=== PATIENT | female | born 1955 | race Caucasian/White ===

== ENCOUNTER → 2021-06-29 15:56 | Outpatient (CLI) | payer OTHER, SELFPAY ==
[2021-07-05 22:07] LABS: QNTFERON TB Mitogen Value > 10.00 IU/mL (.); QNTFERON TB Nil Value 0.25 IU/mL (.); QNTFERON TB1+ Ag Value 0.52 IU/mL (.); QNTFERON TB2+ Ag Value 0.68 IU/mL (.)
[2021-07-06 09:27] LABS: QNTIFERON TB Positive Criteria Positive (Negative)
== END ==
PROVIDERS: PCP Family Medicine; Referring Provider Physician Assistant Medical; Visit Provider Physician Assistant Medical
DX: L40.0 Psoriasis vulgaris (principal); M35.2 Behcet's disease; Z79.899 Other long term (current) drug therapy
CPT/HCPCS: 36415; 86480